=== PATIENT | female | born 1940 | race Caucasian/White ===

== ENCOUNTER → 2020-03-23 11:31 | Outpatient (CLI) | payer MEDICARE ==
[2012-09-20 10:00] VITALS: BMI 23.6
== END | disposition home or self-care (01) ==
LOC: D.HCCARDIO 11:30
PROVIDERS: ATTEND Internal Medicine Cardiovascular Disease
DX: I25.10 Atherosclerotic heart disease of native coronary artery without angina pectoris (principal)

== ENCOUNTER 2020-05-10 07:18 | Outpatient (CLI) | payer MEDICARE ==
[~2020-05-10] VITALS: Ht 177.8 cm; Wt 73.2 kg
--- NOTE | ~2020-05-10 | HEMODYNAMI ---
PATIENT:MEG REILLY MEDICAL RECORD: [id number] : 40 LOCATION:[facility] ADMISSION DATE: 05/10/20 Generatedon:05/10/202010:32 Patient name: MEG REILLY Patient #: [id number] SSN: [id number] : 1940 Date of study: 05/10/2020 Page: Of Hemodynamic Procedure Report Patient Data Patient Demographics Procedure consent was obtained First Name: MEG Gender: Female Last Name: TOMMIE : 1940 Middle Initial: A Age: 79 year(s) Patient #: [id number] Race: SSN: [id number] Additional ID: [id number] Contact details [address]: [address] [place] [address] State: [place] City: [place] Zip code: [address] Admission Admission Data Admission Date: 05/10/2020 Admission Time: 7:18 Arrival Date: 05/10/2020 Arrival Time: 9:30 Admit Source: Other Insurance Payor: Medicare [facility] #: [id number] Height (in.): 69.69 BSA: 1.9 (m2) Height (cm.): 177 BMI: 23.3 (kg/m2) Weight (lbs.): 160.94 Weight (kg.): 73 Lab Results Lab Result Date: 05/10/2020 Lab Result Time: 0:00 Biochemistry Name Units Result Min Max BUN mg/dl 22 --(----)-* 7 18 Creatinine mg/dl 1.3 --(---*)-- 0.6 1.3 eGFR ml/min 42 *-(----)-- 90 120 NONAFRICAN CBC Name Units Result Min Max Hemoglobin g/dl 12.9 -*(----)-- 13.5 17.5 Procedure Procedure Types Cath Procedure Diagnostic Procedure LHC LHC w/Coronaries w/Grafts Sedation Charges Moderate Sedation up to 15 minutes Procedure Description Procedure Date Procedure Date: 05/10/2020 Procedure Start Time: 10:14 Procedure End Time: 10:31 Procedure Staff Name Function Dayron Harrison MD Performing Physician Maggi Duque RT Monitor Vanessa Alberts RT Scrub Sajan Moreno RN Nurse Procedure Data Cath Procedure Fluoroscopy Diagnostic fluoroscopy Total fluoroscopy Time: 3.1 time: 3.1 min min Diagnostic fluoroscopy Total fluoroscopy dose: 372 dose: 372 mGy mGy Contrast Material Contrast Material Type Amount (ml) Isovue 300 69 Entry Location Entry Primary Successful Side Size Upsize Upsize Entry Closure Succes sful Closure Location (Fr) 1 (Fr) 2 (Fr) Remarks Device Remarks Femoral Right 5 Fr Exoseal artery Estimated blood loss: 5 ml Diagnostic catheters Device Type Used For End Catheter Placement MULTIPACK JL 4.0 5Fr Left Coronary catheter Angiography MULTIPACK 3DRC 5Fr Right Coronary catheter Angiography DIAGNOSTIC IM 5Fr SVG Angiography catheter ([id number]) MULTIPACK Pigtail 5 Fr LV Angiography catheter Procedure Complications No complications Procedure Medications Medication Administration Route Dosage 0.9% NaCl I.V. 100 ml/hr Oxygen etCO2 Nasal cannula 2 l/min Heparin Flush Bag added to field 2 bags (1000units/500ml NS) Lidocaine 2% added to field 20 Versed I.V. 1 mg Fentanyl I.V. 50 mcg Hemodynamics Rest BSA: 1.9 (m2) HGB: 12.9 (g/dl) O2 Consumption: Estimated: 167.43 (ml/min) O2 Con sumption indexed: Estimated:88.12 (ml/min/m) Heart Rate: 65 (bpm) Pressure Samples Time Site Value (mmHg) Purpose Heart Use Rate(bpm) 10:26 LV 175/-10,16 Snapshot 68 10:27 AO 175/60(109) Pullback 75 10:27 LV 163/4,11 Pullback 75 Gradients Valve Time Site 1 Site 2 Mean SEP/DFP Peak To Heart Use (mmHg) (sec/min) Peak Rate (mmHg) (bpm) Aortic 10:27 LV AO 0 75 163/4,11 175/60(109) Calculations Valve P-P Mean Valve Index Valve Source Name Gradient Area Flow (cm2) Aortic 0 0 Snapshots Pre Cath Intra NCS Post Cath Vital Signs Time Heart Resp SPO2 etCO2 NIBP (mmHg) Rhythm Pain Sedation Rate (ipm) (%) (mmHg) Status Level (bpm) 9:46:16 67 24 98 31.5 185/85(121) NSR 0 (11) 10(A) , No pain 9:50:40 66 14 98 32.3 184/86(144) NSR 0 (11) 10(A) , No pain 9:55:06 63 21 98 20.2 176/83(132) NSR 0 (11) 10(A) , No pain 9:59:33 64 13 97 12.7 169/77(118) NSR 0 (11) 10(A) , No pain 10:03:57 64 18 98 15 171/75(128) NSR 0 (11) 10(A) , No pain 10:08:19 62 12 97 36.7 166/81(130) NSR 0 (11) 10(A) , No pain 10:12:41 60 12 98 22.5 170/79(133) NSR 0 (11) 10(A) , No pain 10:17:01 64 19 98 33.8 171/84(128) NSR 0 (11) 9(A) , No pain 10:21:24 63 18 98 14.2 175/80(141) NSR 0 (11) 9(A) , No pain 10:25:48 69 21 98 15 183/84(126) NSR 0 (11) 9(A) , No pain 10:30:12 63 22 98 11.2 173/88(140) NSR 0 (11) 10(A) , No pain Medications Time Medication Route Dose Verified Delivered Reason Notes Eff ectiveness by by 9:48:08 0.9% NaCl I.V. 100 Sajan Sajan Per ml/hr Josh Moreno physician RN RN 9:48:18 Oxygen etCO2 2 Sajan Sajan for low 02 Nasal l/min Lorigan Lorigan sats cannula RN RN 9:48:29 Heparin Flush added 2 Sajan Sajan used for Bag to bags Lorigan Lorigan procedure (1000units/500ml field RN RN NS) 9:48:42 Lidocaine 2% added 20ml Sajan Sajan for local to vial Lorigan Lorigan anesthetic field RN RN 10:13:33 Versed I.V. 1 mg Sajan Sajan for Lorigan Lorigan sedation RN RN 10:13:46 Fentanyl I.V. 50 Sajan Sajan for mcg Lorigan Lorigan sedation RN assembly machine feeder Log Time Note 9::17 Informed consent obtained and on chart 9:: Diagnostic Cath Status : Elective 9::45 Admit Source: Other 9::52 Arrival Date: 05/10/2020 9:30:00 AM 9:23:09 Insurance Payor : Medicare 9:26:06 Patient Height : 69.69 inches 9:26:09 Patient Weight : 160.94 lbs 9:28: Lab Result : eGFR NONAFRICAN 42 ml/min 9:: Lab Result : Creatinine 1.3 mg/dl 9:: Lab Result : BUN 22 mg/dl 9:: Lab Result : Hemoglobin 12.9 g/dl 9:28:15 Procedure Status Elective Heart Cath (OP). 9::19 Vanessa Alberts RT(R) sent for patient. Start room use. 9:28:19 Time tracking: Regular hours (M-F 7:00 - 5:00) 9:28:23 Plan of Care:Hemodynamics will remain stable., Cardiac rhythm will remain stable., Comfort level will be maintained., Respiratory function will remain adequate., Patient/ family verbilizes understanding of procedure., Procedure tolerated without complication., Recovers from procedure without complications.. 9:39:24 Patient received from Pre/Post Procedure Room to CCL 2 Alert and oriented. Tansferred to table in Supine position. 9:39:25 Warm blankets applied, and aman hugger turned on for patient comfort. 9:39:26 Correct patient and procedure confirmed by team. 9:39:36 ECG and BP/O2 sat monitors applied to patient. 9:45:05 Vital chart was started 9:48:08 0.9% NaCl 100 ml/hr I.V. was administered by Sajan Moreno RN; Per physician; Verbal order read back and verified. 9:48:18 Oxygen 2 l/min etCO2 Nasal cannula was administered by Sajan Moreno RN; for low 02 sats; Verbal order read back and verified. 9:48:29 Heparin Flush Bag (1000units/500ml NS) 2 bags added to field was administered by Sajan Moreno RN; used for procedure; Verbal order read back and verified. 9:48:42 Lidocaine 2% 20ml vial added to field was administered by Sajan Lorigan RN; for local anesthetic; Verbal order read back and verified. 9:49:06 Baseline sample Acquired. 9:49:17 Rhythm: sinus rhythm 9:49:23 H&P Date Dictated: 05/10/2020 Within 30 days and on chart., H&P Addendum completed by physician on day of procedure. (MUST COMPLETE FOR ALL OUTPATIENTS). 9:49:24 Pre-procedure instructions explained to patient. 9:49:24 Pre-op teaching completed and patient verbalized understanding. 9:49:31 Family in patients room. 9:49:32 Patient NPO since Midnight. 9:49:34 Is the patient allergic to Iodine/contrast media? Yes. 9:49:35 Was the patient premedicated? Yes 9:49:37 Is patient on blood thinner?No 9:49:38 Patient diabetic? Yes. 9:49:39 If diabetic: On Metformin? Yes 9:49:48 If on Metformin: Last Dose? 05/08/2020 9:49:51 Previous problem with sedation/anesthesia? No ? 9:49:55 Snore? No 9:49:56 Sleep apnea? No 9:49:57 Deviated septum? No 9:49:58 Opens mouth fully? Yes 9:49:59 Sticks out tongue? Yes 9:50:00 Airway obstruction? No ? 9:50:03 Dentures? No ? 9:50:07 Pre procedure: right dorsailis pedis pulse 2+ Normal; easily identifiable; not easily obliterated 9:50:10 Pre procedure: left dorsailis pedis pulse 2+ Normal; easily identifiable; not easily obliterated 9:50:12 Patient pain scale 0/10 ?. 9:50:18 IV patent on arrival in left forearm with 0.9% NaCl at KVO. 9:50:21 Lab results completed and on chart. 9:52:20 Risk of Mortality: 0.4 9:52:25 Risk of blood transfusion: 0.3 9:52:28 Risk of DEBBIE: 0.5 9:52:33 Right groin area was prepped with chlora-prep and draped in sterile fashion 9:52:34 Alarms reviewed by R. N. 9:52:34 Sharps counted by scrub and verified by R.N. 9:52:35 Physician arrived 9:52:36 --------ALL STOP TIME OUT------ 9:52:36 Final Timeout: patient, procedure, and site verified with staff and physician. All members of the team are in agreement. 9:52:41 Right groin site verified by team. 9:52:45 Fire Safety Assessment: A--An alcohol-based skin anteseptic being used preoperatively., C--Open oxygen or nitrous oxide is being used., D--An ESU, laser, or fiber-optic light is being used. 9:52:49 Physical assessment completed. ASA score P 2 - A patient with mild systemic disease as per Dayron Harrison MD. 9:52:54 3b) 30-44 Moderately reduced kidney function. 9:53:11 Maximum allowable contrast dose (3.7 X eGFR X 0.75)116 ml. 9:53:16 Sedation plan: IV Moderate Sedation Medication:Versed, Fentanyl 9:53:20 Use device set Femoral Dx 9:53:21 ACIST Syringe (09566) opened to sterile field. 9:53:22 Bag Decanter (2002S) opened to sterile field. 9:53:22 Medline Cath Pack ([id number]) opened to sterile field. 9:53:23 ACIST Hand Control (64326) opened to sterile field. 9:53:24 ACIST Manifold (49358) opened to sterile field. 9:53:24 DIAGNOSTIC Multipack 5Fr catheter set ([id number]) opened to sterile field. 9:53:25 Tegaderm 4 x 4 (1626W) opened to sterile field. 9:53:26 EXOSEAL 5Fr (EX500) opened to sterile field. 9:53:26 SHEATH 5FR [place] (THB618) opened to sterile field. 9:53:27 EMERALD Guide Wire (838-531) opened to sterile field. 10:13:33 Versed 1 mg I.V. was administered by Sajan Moreno RN; for sedation; Verbal order read back and verified. 10:13:38 Procedure started. 10:13:38 Full Disclosure recording started 10:13:46 Fentanyl 50 mcg I.V. was administered by Sajan Moreno RN; for sedation; Verbal order read back and verified. 10:14:12 Local anesthetic to right femoral artery with Lidocaine 2% by Dayron Harrison MD.INITIAL ACCESS ONLY 10:14:22 A 5 Fr sheath was inserted into the Right Femoral artery 10:16:13 A MULTIPACK JL 4.0 5Fr catheter was advanced over the wire and used for Left Coronary Angiography. 10:16:28 LCA angiography performed. 10:16:43 Injector settings: Ml/sec: 3, Volume: 6, 10:17:33 Catheter removed. 10:19:10 A MULTIPACK 3DRC 5Fr catheter was advanced over the wire and used for Right Coronary Angiography. 10:19:39 RCA angiography performed. 10:19:41 Injector settings: Ml/sec: 3, Volume: 6, 10:20:22 A DIAGNOSTIC IM 5Fr catheter ([id number]) was advanced over the wire and used for SVG Angiography. 10:21:43 FINN to LAD angiography performed. 10:24:28 Injector settings: Ml/sec: 3, Volume: 6, 10:25:07 Catheter removed. 10:25:10 A MULTIPACK Pigtail 5 Fr catheter was advanced over the wire and used for LV Angiography. 10:26:53 LV hemodynamics recorded. 10:26:54 LV gram done using KEMP 10:26:57 Injector settings: Ml/sec: 5, Volume: 15, 10:27:09 EF : 60 % 10:27:23 Catheter removed. 10:28:13 Sheath removed intact; hemostasis achieved with Exoseal to the Right Femoral artery. 10:28:27 Procedure ended.(Physican Out) 10:28:44 Fluoroscopy time 03.10 minutes. 10:28:50 Fluoroscopy dose: 372 mGy 10:28:50 Flurop Dose total: 372 10:28:59 Dose Area Product 81471 mGy/cm. 10:29:41 Contrast amount:Isovue 300 69ml. 10:29:44 Maximum allowable dose exceeded? No. 10:29:45 Sharps counted by scrub and verified by R.N. 10:30:02 Insertion/operative site no bleeding no hematoma. 10:30:06 Post-op/insertion site Right Femoral artery dressed using a 4 x 4 and Tegaderm. 10:30:07 Post Procedure Pulses reassessed and unchanged 10:30:09 Post procedure rhythm: unchanged. 10:30:12 Estimated blood loss: 5 ml 10:30:13 Post procedure instruction explained to patient.Patient verbalizes understanding. 10:30:13 Patient needs reinforcement of post procedure teaching. 10:30:23 Procedure type changed to Cath procedure, Diagnostic procedure, LHC, LHC w/Coronaries w/Grafts, Sedation Charges, Moderate Sedation up to 15 minutes 10:30:51 Procedure and supply charges have been captured, reviewed, submitted and are correct. 10:30:55 Procedure Complication : No complications 10:30:58 Vital chart was stopped 10:31:02 [facility] Findings: MVD- MD will discuss options w/ pt 10:31:04 Operative report dictated upon procedure completion. 10:31:04 See physician's report for complete and final results. 10:31:06 Report given to ED. 10:31:09 Procedure ended. 10:31:09 Full Disclosure recording stopped 10:31:15 End room use (Document Last) 10:31:50 End room use (Document Last) 10:32:08 End room use (Document Last) Device Usage Item Name Manufacture Quantity Catalog Hospital Part Current Minimal L ot# / Number Charge Number Stock Stock Serial# Code ACIST Acist 1 20565 558568 500384 150843 20 Syringe Medical (86960) Systems Inc Bag Microtek 1 2001S 837134 63757 018717 5 Decanter Medical Inc. () Medline Medline 1 [id number] 418227 51272 238752 5 Cath Pack ([id number]) ACIST Hand Acist 1 92326 355749 907844 112138 5 Control Medical (51222) Systems Inc ACIST Acist 1 33732 635041 584602 549763 5 Manifold Medical (90431) Systems Inc DIAGNOSTIC Cardinal 1 OC1870 200807 55280 033987 30 Multipack Channel Intelligence 5Fr catheter set (GA4999) Tegaderm 4 3M 1 1626W 343498 128717 932957 5 x 4 (1626W) EXOSEAL 5Fr Cardinal 1 EX500 649295 082091 995765 10 (EX500) Health SHEATH 5FR Terumo 1 VMR417 912135 559209 562576 5 [place] (OUM958) EMERALD Cardinal 1 502-455 467541 829830 693671 5 Guide Wire [facility] (502-308) MULTIPACK Cardinal 1 702186 5 JL 4.0 5Fr Health catheter MULTIPACK Cardinal 1 736707 5 3DRC 5Fr Health catheter DIAGNOSTIC Cardinal 1 [id number] 700066 678769 761010 5 IM 5Fr Health catheter ([id number]) MULTIPACK Cardinal 1 360064 5 Pigtail 5 Health Fr catheter Signature [place] [place] Stage Time Signature Unsigned Intra-Procedure 05/10/2020 Maggi Duque 10:31:50 AM RT(R) Intra-Procedure 05/10/2020 Sajan 10:32:08 AM Josh RN Intra-Procedure 05/10/2020 Dayron Harrison MD 10:32:42 AM Signatures Performing Physician : Signature : Dayron Harrison MD Date : Time : Monitor : Maggi Duque RT Signature : Date : Time : Nurse : Sjaan Moreno Signature : RN Date : Time : [address] [address]
[2020-05-10] MEDS ORDERED: CARDURA2 MG PO (08:27)
[2020-05-10] MEDS ORDERED: LANTUS SOLOSTAR3 ML SC (08:27)
[2020-05-10] MEDS ORDERED: DILT-XR240 MG PO (08:27)
[2020-05-10] MEDS ORDERED: NORMODYNE / TR300 MG PO (08:28)
[2020-05-10] MEDS ORDERED: GLUCOPHAGE500 MG PO (08:29)
[2020-05-10] MEDS ORDERED: COZAAR100 MG PO (08:29)
[2020-05-10] MEDS ORDERED: TERBINAFINE HC250 MG PO (08:30)
[2020-05-10] MEDS ORDERED: ATIVAN0.5 MG PO (08:31)
[2020-05-10] MEDS ORDERED: GABAPENTIN300 MG PO (08:31)
[2020-05-10 08:42] VITALS: BP 150/60; Ht 177.8 cm; Wt 73.2 kg
[2020-05-10 09:07] LABS: BASOPHILS 0.1 % (0-2); EOSINOPHILS 0 % (0-7); HEMATOCRIT 39.6 % (36.0-48.0); HEMOGLOBIN 12.9 g/dL (12-16); IMMATURE GRANULOCYTES 0.2 % (0-5); MCH 28.4 pg (26.0-34.0); MCHC 32.6 g/dL (31.0-37.0); MCV 87.2 fL (80.0-100.0); MEAN PLATELET VOLUME 10.1 fL (7.4-10.4); MONOCYTES 2.6 % (2-11); NEUTROPHILS 89.1 % (40-80); PLATELET COUNT 277 10x3/uL (130-400); RBC 4.54 10x6/uL (4.00-5.40); RDW 13.1 % (11.5-14.5); WBC 8.8 10x3/uL (4.8-10.8)
[2020-05-10 09:19] LABS: ANION GAP 13.7 mmol/L (8-16); CALCIUM 9.9 mg/dL (8.5-10.1); CARBON DIOXIDE 25.7 mmol/L (21.0-32.0); CHOL - HDL RATIO 2.4 ratio (2.3-4.1); CREATININE - SERUM 1.3 mg/dL (0.6-1.3); LDL-HDL RATIO 1.2 ratio (1.5-3.5); POTASSIUM - SERUM 4.4 mmol/L (3.5-5.1)
--- NOTE | 2020-05-10 10:45 | NUR ---
PT REC'D TO ROOM 5 VIA STRETCHER FROM N[employer]ELTY [employer]. MONITORS ESTAB. DR. VALLEJO AT TO UPDATE PT AND . SEE SURVEYOR GEODETIC, ALARMS ON AND C/L IN REACH.
--- NOTE | 2020-05-10 11:00 | NUR ---
R GROIN SITE SOFT, NO S/S BLEEDING OR SWELLING. R LEG/FOOT WARM WITH PALP PULSES. PT DENIES PAIN, TAKING ICE CHIPS. ALARMS ON AND C/L IN REACH.
--- NOTE | 2020-05-10 11:15 | NUR ---
DR VALLEJO NOTIFIED OF SBP 180S - NEW ORDER REC'D. PT DENIES PAIN. R GROIN SITE C/D/I. NO S/S BLEEDING OR HEMATOMA. AT BS.
--- NOTE | 2020-05-10 11:30 | NUR ---
R GROIN SITE SOFT, C/D/I. NO S/S BLEEDING OR HEMATOMA. R LEG/FOOT WARM WITH PALP PULSES. LABETALOL GIVEN PER MD ORDER - SEE EMAR. AT BS. PT DENIES PAIN OR NEEDS.
--- NOTE | 2020-05-10 11:45 | NUR ---
R GROIN SITE SOFT, NO S/S BLEEDING OR HEMATOMA. PULSES PALP. R LEG/FOOT WARM WITH BRISK CAP REFILL. ALARMS ON AND C/L IN REACH.
--- NOTE | 2020-05-10 12:15 | NUR ---
B/P 154/68. R GROIN SITE SOFT, NO S/S BLEEDING. HOB GRADUALLY ELEVATED. AT BS. SANDWICH TRAY AND TEA PROVIDED PER PT REQUEST. C/L IN REACH.
--- NOTE | 2020-05-10 12:45 | NUR ---
R GROIN SITE C/D/I, NO S/S BLEEDING. PIV D/C'D INTACT, DSG APPLIED. PT ALLOWED UP TO GET DRESSED AND GO TO BR INDEPENDENTLY.
--- NOTE | 2020-05-10 13:09 | NUR ---
ALL DISCHARGE INSTRUCTIONS REVIEWED WITH PT AND HER , INCLUDING RESTRICTIONS, MEDS AND F/U APPT. PT VERBALIZES UNDERSTANDING, NO QUESTIONS AT THIS TIME.
--- NOTE | 2020-05-10 13:15 | NUR ---
PT D/C'D VIA WC TO PRIVATE VEHICLE WITH ALL BELONGINGS AND PAPERWORK.
== END 2020-05-10 13:15 | disposition home or self-care (01) ==
LOC: D.CATH 07:18
PROVIDERS: ATTEND Internal Medicine Cardiovascular Disease
DX: I25.110 Atherosclerotic heart disease of native coronary artery with unstable angina pectoris (principal); E11.9 Type 2 diabetes mellitus without complications; I10 Essential (primary) hypertension; Z79.84 Long term (current) use of oral hypoglycemic drugs

== ENCOUNTER → 2020-07-21 09:19 | Outpatient (CLI) | payer MEDICARE ==
[2020-05-10 08:42] VITALS: BMI 23.1
--- NOTE | ~2020-07-21 | HEMODYNAMI ---
PATIENT:MEG REILLY MEDICAL RECORD: [id number] : 40 [id number] ADMISSION DATE: 07/21/20 Generatedon:07/21/202010:24 Patient name: MEG REILLY Patient #: [id number] SSN: [id number] : 1940 Date of study: 07/21/2020 Page: Of Hemodynamic Procedure Report Patient Data Patient Demographics Procedure consent was obtained First Name: MEG Gender: Female Last Name: TOMMIE : 1940 Middle Initial: A Age: 79 year(s) Patient #: [id number] Race: SSN: [id number] Additional ID: [id number] Contact details [address]: [address] [place] [address] State: [place] City: [place] Zip code: [address] Admission Admission Data Admission Date: 07/21/2020 Admission Time: 9:19 Procedure Procedure Types Cath Procedure Peripheral Cath Diagnostic Procedure Miscellaneous Aspiration/Injection (Joint) Procedure Description Procedure Date Procedure Date: 07/21/2020 Procedure Start Time: 10:17 Procedure End Time: 10:24 Procedure Staff Name Function Jewel Graves MD Performing Physician RICHIE POSEY RT Monitor Procedure Data Cath Procedure Fluoroscopy Diagnostic fluoroscopy Total fluoroscopy Time: 0.1 time: 0.1 min min Diagnostic fluoroscopy Total fluoroscopy dose: 1 dose: 1 mGy mGy Hemodynamics Rest Pre Cath Intra NCS Post Cath Procedure Log Time Note 9:46:38 SAFE-T PLUS MYELOGRAM TRAY opened to sterile field. 9:46:42 RICHIE POSEY RT (R) sent for patient. Start room use. 9:46:47 Patient received from Other to IR Alert and oriented. Tansferred to table in Supine position. 9:46:49 Signed procedure consent form obtained from patient. 9:46:50 Warm blankets applied, and aman hugger turned on for patient comfort. 9:46:50 Correct patient and procedure confirmed by team. 9:46:52 - 9:46:53 Pre-procedure instructions explained to patient. 9:46:55 Is the patient allergic to Iodine/contrast media? Yes. 9:46:57 Was the patient premedicated? No 9:46:59 Is patient on blood thinner?Yes. aspirin x 1 week ago 9:47:19 Left Hip was prepped with betadine and draped in sterile fashion. 9:47:20 Alarms reviewed by Hi Barrett :47:20 Sharps counted by scrub and verified by Estela 9:47:21 - 10:15:21 Physician arrived 10:15:50 Final Timeout: patient, procedure, and site verified with staff and physician. All members of the team are in agreement. 10:16:12 Procedure started. 10:16:12 Full Disclosure recording started 10:16:18 Left groin site verified by team. 10:17:27 Local anesthetic to Left Hip with Lidocaine 1% by Jewel Graves MD.INITIAL ACCESS ONLY 10:22:41 Procedure ended.(Physican Out) 10:23:09 Fluoroscopy dose: 1 mGy 10:23:09 Flurop Dose total: 1 10:23:11 Fluoroscopy time 00.10 minutes. 10:23:28 Post-op/insertion site Left Hip dressed using a Bandaid. 10:23:40 Procedure and supply charges have been captured, reviewed, submitted an d are correct. 10:24:02 Procedure ended. 10:24:02 Full Disclosure recording stopped Device Usage Item Name Manufacture Quantity Catalog Hospital Part Current Minimal Lot# / Number Charge Number Stock Stock Serial# Code SAFE-T CareFusion 1 [id number] 5 PLUS MYELOGRAM TRAY Signature Audit [place] Stage Time Signature Unsigned Intra-Procedure 07/21/2020 RICHIE POSEY RT 10:24:42 AM (R) [place] [id number] [place] [address]
[~2020-07-21 09:19] MED LIST: ATIVAN0.5 MG PO; CARDURA2 MG PO; COZAAR100 MG PO; DILT-XR240 MG PO; GABAPENTIN300 MG PO; GLUCOPHAGE500 MG PO; LANTUS SOLOSTAR3 ML SC; NORMODYNE / TR300 MG PO; TERBINAFINE HC250 MG PO
== END | disposition home or self-care (01) ==
LOC: D.RAD 09:19
PROVIDERS: ATTEND Orthopaedic Surgery
DX: M16.12 Unilateral primary osteoarthritis, left hip (principal)